=== PATIENT | male | born 1975 | race Caucasian/White ===

== ENCOUNTER 2016-09-17 11:04 | Emergency (ER) | payer BC, OTHER ==
[2016-09-17] MEDS ORDERED: Fluorescein Opthalmic Strip ONE (11:09)
[2016-09-17] MEDS ORDERED: Tetracaine HCl 0.5% Ophth Soln 2 ML Bottle ONE (11:09)
[2016-09-17] MEDS ORDERED: Erythromycin Base 0.5% Ophth Oint 3.5 gm Tube ONE (11:25)
[2016-09-17] MEDS ORDERED: Gentamicin Ophth Ointment 0.3% 3.5 gm Tube ONE (11:26)
[2016-09-17] MEDS ORDERED: Ibuprofen 800 MG TAB ONE (11:32)
[2016-09-17] MEDS ORDERED: Adacel (T-DAP) 0.5 ML VIAL ONE (11:41)
== END 2016-09-17 11:55 | disposition home or self-care (01) ==
LOC: BURERS 11:04
DX: S05.02XA Injury of conjunctiva and corneal abrasion without foreign body, left eye, initial encounter (principal); X58.XXXA Exposure to other specified factors, initial encounter
CPT/HCPCS: 90471; 90715

== ENCOUNTER 2017-07-17 08:00 | Outpatient (CLI) | payer OTHER ==
--- NOTE | 2017-07-17 17:22 | ULT ---
ABDOMINAL ULTRASOUND: Date: 07/17/17 Ultrasonography of the abdomen was performed for evaluation of right flank pain. FINDINGS: The liver is slightly large, measuring 16.7 cm in oblique sagittal length. It is a little echodense, so I cannot exclude some fatty infiltration, but I am not certain. There are no dilated ducts or mass es seen. There has been a prior cholecystectomy. The common bile duct was 7.0 mm in caliber, which is normal in a post cholecystectomy patient. Pancreas was partially obscured by gas, but the visible ar eas appear normal. The aorta and inferior vena cava were unremarkable. The spleen is normal in size. The right kidney is 11.2 cm long and the left kidney was 11.4 cm. Portions of each were obscured by g as, but no mass or hydronephrosis was appreciated. IMPRESSION: No significant abdominal finding. POS: HOME
== END 2017-07-17 08:01 | disposition home or self-care (01) ==
LOC: BURULT 08:00
PROVIDERS: ATTEND Family Medicine
DX: R10.9 Unspecified abdominal pain (principal)
CPT/HCPCS: 76700

== ENCOUNTER 2018-12-06 12:33 | Emergency (ER) | payer BC, OTHER ==
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
== END 2018-12-06 13:16 | disposition home or self-care (01) ==
LOC: BURERS 12:33
DX: S60.221A Contusion of right hand, initial encounter (principal); I10 Essential (primary) hypertension; F43.10 Post-traumatic stress disorder, unspecified; W22.01XA Walked into wall, initial encounter

== ENCOUNTER 2018-12-25 14:32 | Outpatient (CLI) | payer OTHER ==
--- NOTE | 2018-12-25 17:20 | RAD ---
RIGHT HAND THREE VIEWS: 12/25/18 No acute fracture was seen. All bones appeared intact. There does appear to be an old well healed inj ury of the distal fifth metacarpal. IMPRESSION: No acute findings. POS: HOME
== END 2018-12-25 14:33 | disposition home or self-care (01) ==
LOC: BURRAD 14:32
PROVIDERS: ATTEND Family Medicine
DX: M79.641 Pain in right hand (principal)

== ENCOUNTER 2019-11-26 09:04 | Outpatient (CLI) | payer OTHER ==
--- NOTE | 2019-11-26 17:46 | RAD ---
CHEST TWO VIEWS: 11/26/19 Comparison is made with a 04/30/19 study. The heart is normal in size and the lungs are clear. No infiltrate or effusion was seen. There is no edema, adenopathy, or mediastinal abnormality of concern. There may be a faint calcified granuloma o r two. IMPRESSION: No significant findings. POS: HOME
== END 2019-11-26 09:05 | disposition home or self-care (01) ==
LOC: BURRAD 09:04
PROVIDERS: ATTEND Family Medicine
DX: Z86.11 Personal history of tuberculosis (principal)
CPT/HCPCS: 71046

== ENCOUNTER 2021-01-03 10:06 | Outpatient (CLI) | payer OTHER ==
[2021-01-03 10:41] LABS: Anion Gap 13 mmol/L (10-20); BUN (Urea Nitrogen) 25 mg/dL (8.9-20.6); Calc. Creatinine Clearance 0 mL/min (70-130); Calcium 9.2 mg/dL (7.8-10.44); Carbon Dioxide 27 mmol/L (22-29); Chloride 106 mmol/L (98-107); Glucose 110 mg/dL (70-105); Potassium 4.6 mmol/L (3.5-5.1); Sodium 141 mmol/L (136-145)
== END 2021-01-03 10:07 | disposition home or self-care (01) ==
LOC: BURLAB 10:06
PROVIDERS: ATTEND Family Medicine
DX: I10 Essential (primary) hypertension (principal); Z86.11 Personal history of tuberculosis
CPT/HCPCS: 36415; 71046; 80048

== ENCOUNTER 2022-11-20 14:09 | Outpatient (CLI) | payer OTHER | END 2022-11-20 14:10 | disposition home or self-care (01) | LOC: BURRAD 14:09 | PROVIDERS: ATTEND Family Medicine | DX: Z86.11 Personal history of tuberculosis (principal) | CPT/HCPCS: 71046 ==